=== PATIENT | male | born 1960 | race African-American/Black ===

== ENCOUNTER 2016-06-25 20:34 | Emergency (ER) | payer SELFPAY ==
[~2016-06-25] VITALS: Ht 175.3 cm; Wt 81.8 kg
[2016-06-25 20:38] VITALS: BP 102/64
== END 2016-06-25 21:45 | disposition left against medical advice (07) ==
LOC: EMS 20:36
DX: F31.9 Bipolar disorder, unspecified (principal); F20.9 Schizophrenia, unspecified; F17.210 Nicotine dependence, cigarettes, uncomplicated; Z53.21 Procedure and treatment not carried out due to patient leaving prior to being seen by health care provider

== ENCOUNTER 2016-06-25 23:03 | Emergency (ER) | payer OTHER ==
[~2016-06-25] VITALS: Ht 175.3 cm; Wt 81.8 kg
[2016-06-26] MEDS ORDERED: LORazepam 2 MG TABLET PO ONE (01:00)
[2016-06-26] MEDS ORDERED: QUEtiapine FUMARATE 100 MG TABLET PO ONE (01:30)
[2016-06-26 09:28] VITALS: BP 112/78
== END 2016-06-26 09:39 | disposition home or self-care (01) ==
LOC: EMS 23:06
DX: F25.9 Schizoaffective disorder, unspecified (principal); F31.9 Bipolar disorder, unspecified; F17.210 Nicotine dependence, cigarettes, uncomplicated; Z88.8 Allergy status to other drugs, medicaments and biological substances
CPT/HCPCS: 99284

== ENCOUNTER 2016-06-29 21:09 | Inpatient (IN) | payer MEDICAID, OTHER ==
[~2016-06-29] VITALS: Ht 175.3 cm; Wt 75.7 kg
[2016-06-29 22:06] LABS: BASOPHILS # (AUTO) 0.04 K/uL (0.00-0.20); BASOPHILS % (AUTO) 0.5 % (0.0-2.0); EOSINOPHILS # (AUTO) 0.03 K/uL (0.00-0.70); EOSINOPHILS % (AUTO) 0.42 % (1.0-6.0); HEMATOCRIT 43.7 % (41-53); HEMOGLOBIN 14.1 g/dL (13.5-17.5); LYMPHOCYTES # (AUTO) 1.6 K/uL (1.0-4.8); LYMPHOCYTES % (AUTO) 21.6 % (22.0-44.0); MEAN CORPUSCULAR HEMOGLOBIN 29.3 pg (26.0-34.0); MEAN CORPUSCULAR HGB CONC 32.3 G/dL (31.0-37.0); MEAN CORPUSCULAR VOLUME 91 fL (80-100); MONOCYTES # (AUTO) 0.5 K/uL (0.1-1.0); MONOCYTES % (AUTO) 6.3 % (2.0-9.0); NEUTROPHILS # (AUTO) 5.3 K/uL (1.8-7.7); NEUTROPHILS % (AUTO) 71.2 % (40.0-70.0); PLATELET COUNT (AUTO) 234 K/uL (150-450); RED BLOOD CELL COUNT(AUTO) 4.82 MIL/uL (4.50-5.90); WHITE BLOOD COUNT (AUTO) 7.5 K/uL (4.5-11.0)
[2016-06-29 22:08] LABS: ANION GAP 4 mmol/L (8-16); CALCIUM, TOTAL 8.5 mg/dL (8.8-10.5); CARBON DIOXIDE 32 mmol/L (22-29); CHLORIDE 104 mmol/L (98-107); CREATININE 0.79 mg/dL (0.60-1.30); GLOMERULAR FILTR. RATE CALC > 60 mL/min (>60); POTASSIUM 4.2 mmol/L (3.5-5.1); SODIUM SERUM 140 mmol/L (136-145); UREA NITROGEN, BLOOD 8 mg/dL (7-18)
[2016-06-29 22:14] LABS: ALANINE AMINOTRANSFERASE 22 U/L (12-78); ALBUMIN 3.8 g/dL (3.4-5.0); ASPARTATE AMINOTRANSFERASE 16 U/L (15-37); BILIRUBIN,TOTAL 0.3 mg/dL (0.1-1.0); TOTAL PROTEIN, SERUM 7.1 g/dL (6.4-8.2)
[2016-06-29] MEDS ORDERED: DiphenhydrAMINE HCL 50 MG/ML VIAL IM ONE (22:30)
[2016-06-29] MEDS ORDERED: QUEtiapine FUMARATE 100 MG TABLET PO ONE (22:30)
[2016-06-29] MEDS ORDERED: LORazepam 2 MG/ML VIAL IM ONE (22:30)
[2016-06-30 01:03] VITALS: BP 118/67
[2016-06-30 08:01] VITALS: BP 117/83
[2016-06-30] MEDS: LORazepam 2 MG TABLET PO PRN (12:10)
[2016-06-30] MEDS: QUEtiapine FUMARATE 100 MG TABLET PO PRN (12:10)
[2016-06-30 16:28] VITALS: BP 116/78
[2016-06-30] MEDS ORDERED: BACITRACIN 28.4 GM OINTMENT TP PRN (18:00)
[2016-06-30] MEDS ORDERED: ALBUTEROL SULFATE HFA 90 MCG/PUFF 8 GM INHALER IH PRN (18:00)
[2016-06-30] MEDS ORDERED: PETROLATUM,WHITE 71 GM JELLY TP PRN (18:00)
[2016-06-30] MEDS ORDERED: BENZOCAINE/MENTHOL LOZENGE [8 LOZENGES/PACKET] MM PRN (18:00)
[2016-06-30] MEDS ORDERED: MAG HYDROX/AL HYDROX/SIMETH ES 30 ML SUSPENSION UDCUP PO PRN ×2 (18:00)
[2016-06-30] MEDS ORDERED: ACETAMINOPHEN 325 MG TABLET PO PRN ×2 (18:00)
[2016-06-30] MEDS ORDERED: MAGNESIUM HYDROXIDE SUSPENSION 30 ML UDCUP PO PRN ×2 (18:00)
[2016-06-30] MEDS ORDERED: CloNIDine HCL 0.1 MG TABLET PO PRN (18:00)
[2016-06-30] MEDS ORDERED: IBUPROFEN 600 MG TABLET PO PRN (18:00)
[2016-06-30] MEDS ORDERED: ONDANSETRON HCL 4 MG TABLET PO PRN (18:00)
[2016-06-30] MEDS ORDERED: LOPERAMIDE HCL 2 MG CAPSULE PO PRN (18:00)
[2016-06-30] MEDS: QUEtiapine FUMARATE 25 MG TABLET PO SCH (20:08)
[2016-07-01] MEDS: LORazepam 2 MG TABLET PO PRN (07:51)
[2016-07-01] MEDS: BENZTROPINE MESYLATE 0.5 MG TABLET PO SCH ×2 (08:05→16:11)
[2016-07-01] MEDS: QUEtiapine FUMARATE 25 MG TABLET PO SCH ×2 (08:05→16:12)
[2016-07-01 08:30] VITALS: BP 115/79
[2016-07-01 16:10] VITALS: BP 118/75
[2016-07-02 07:07] LABS: CHOL/HDL RATIO 2.5 (4.2-7.3)
[2016-07-02 08:09] VITALS: BP 106/71
[2016-07-02] MEDS: BENZTROPINE MESYLATE 0.5 MG TABLET PO SCH ×2 (08:43→17:00)
[2016-07-02] MEDS: QUEtiapine FUMARATE 25 MG TABLET PO SCH ×2 (08:43→17:00)
[2016-07-02] MEDS: LORazepam 2 MG TABLET PO PRN (08:44)
[2016-07-03] MEDS: BENZTROPINE MESYLATE 0.5 MG TABLET PO SCH ×2 (08:02→16:24)
[2016-07-03] MEDS: QUEtiapine FUMARATE 25 MG TABLET PO SCH ×2 (08:02→16:24)
[2016-07-03 08:08] VITALS: BP 104/69
[2016-07-03 16:53] VITALS: BP 137/75
[2016-07-04 08:21] VITALS: BP 126/74
[2016-07-04] MEDS: QUEtiapine FUMARATE 100 MG TABLET PO SCH ×2 (09:15→16:24)
[2016-07-04] MEDS: BENZTROPINE MESYLATE 0.5 MG TABLET PO SCH ×2 (09:15→16:23)
[2016-07-04 16:47] VITALS: BP 131/79
[2016-07-05 08:05] VITALS: BP 98/60
[2016-07-05] MEDS: BENZTROPINE MESYLATE 0.5 MG TABLET PO SCH ×2 (08:17→16:28)
[2016-07-05] MEDS: CHOLECALCIFEROL (VIT D3) 1,000 UNITS TABLET PO SCH (08:17)
[2016-07-05] MEDS: QUEtiapine FUMARATE 300 MG TABLET PO SCH ×2 (08:17→20:29)
[2016-07-05 17:40] VITALS: BP 116/74
[2016-07-06 08:02] VITALS: BP 100/60
[2016-07-06] MEDS: CHOLECALCIFEROL (VIT D3) 1,000 UNITS TABLET PO SCH (09:01)
[2016-07-06] MEDS: QUEtiapine FUMARATE 300 MG TABLET PO SCH (09:01)
[2016-07-06] MEDS: BENZTROPINE MESYLATE 0.5 MG TABLET PO SCH ×2 (09:02→16:03)
[2016-07-06] MEDS ORDERED: SODIUM CHLORIDE 0.65% 44 ML NASAL SPRAY NASAL PRN (16:45)
[2016-07-06] MEDS: QUEtiapine FUMARATE 200 MG TABLET PO SCH (20:13)
[2016-07-07] MEDS: QUEtiapine FUMARATE 200 MG TABLET PO SCH ×2 (07:53→20:16)
[2016-07-07] MEDS: CHOLECALCIFEROL (VIT D3) 1,000 UNITS TABLET PO SCH (07:53)
[2016-07-07] MEDS: BENZTROPINE MESYLATE 2 MG TABLET PO SCH ×2 (07:54→16:04)
[2016-07-07 09:08] VITALS: BP 124/84
[2016-07-07] MEDS: LORazepam 2 MG TABLET PO PRN ×2 (11:59→16:08)
[2016-07-07] MEDS: QUEtiapine FUMARATE 100 MG TABLET PO PRN ×2 (11:59→16:08)
[2016-07-07 16:30] VITALS: BP 118/72
[2016-07-08] MEDS: BENZTROPINE MESYLATE 2 MG TABLET PO SCH ×2 (08:02→16:51)
[2016-07-08] MEDS: CHOLECALCIFEROL (VIT D3) 1,000 UNITS TABLET PO SCH (08:02)
[2016-07-08] MEDS: QUEtiapine FUMARATE 200 MG TABLET PO SCH ×2 (08:02→20:14)
[2016-07-08] MEDS: LORazepam 2 MG TABLET PO PRN ×2 (08:03→16:51)
[2016-07-08 08:05] VITALS: BP 100/60
[2016-07-08 18:13] VITALS: BP 137/87
[2016-07-09] MEDS: CHOLECALCIFEROL (VIT D3) 1,000 UNITS TABLET PO SCH (08:09)
[2016-07-09] MEDS: QUEtiapine FUMARATE 200 MG TABLET PO SCH ×2 (08:09→20:16)
[2016-07-09] MEDS: DIVALPROEX SODIUM 250 MG DR TABLET PO SCH ×2 (08:09→16:03)
[2016-07-09] MEDS: BENZTROPINE MESYLATE 2 MG TABLET PO SCH ×2 (08:09→16:03)
[2016-07-09 08:10] VITALS: BP 106/64
[2016-07-09] MEDS: LORazepam 2 MG TABLET PO PRN (08:11)
[2016-07-09 19:07] VITALS: BP 104/65
[2016-07-10] MEDS: ZOLPIDEM TARTRATE 10 MG TABLET PO PRN (02:18)
[2016-07-10] MEDS: LORazepam 2 MG TABLET PO PRN (02:18)
[2016-07-10] MEDS: QUEtiapine FUMARATE 100 MG TABLET PO PRN (03:14)
[2016-07-10 05:29] VITALS: BP 112/82
[2016-07-10] MEDS: CHOLECALCIFEROL (VIT D3) 1,000 UNITS TABLET PO SCH (08:22)
[2016-07-10] MEDS: QUEtiapine FUMARATE 200 MG TABLET PO SCH ×2 (08:22→20:43)
[2016-07-10] MEDS: BENZTROPINE MESYLATE 2 MG TABLET PO SCH ×2 (08:22→17:45)
[2016-07-10] MEDS: DIVALPROEX SODIUM 250 MG DR TABLET PO SCH ×2 (08:25→17:45)
[2016-07-10 08:56] VITALS: BP 115/83
[2016-07-10 16:25] VITALS: BP 131/78
[2016-07-11] MEDS: LORazepam 2 MG TABLET PO PRN ×2 (02:09→08:20)
[2016-07-11] MEDS: ZOLPIDEM TARTRATE 10 MG TABLET PO PRN (02:10)
[2016-07-11 08:00] VITALS: BP 122/88
[2016-07-11] MEDS: BENZTROPINE MESYLATE 2 MG TABLET PO SCH ×2 (08:20→17:01)
[2016-07-11] MEDS: DIVALPROEX SODIUM 250 MG DR TABLET PO SCH ×2 (08:20→17:01)
[2016-07-11] MEDS: CHOLECALCIFEROL (VIT D3) 1,000 UNITS TABLET PO SCH (08:20)
[2016-07-11] MEDS: QUEtiapine FUMARATE 100 MG TABLET PO PRN (08:20)
[2016-07-11] MEDS: QUEtiapine FUMARATE 200 MG TABLET PO SCH ×2 (08:21→21:16)
[2016-07-11 16:00] VITALS: BP 119/81
[2016-07-12] MEDS: QUEtiapine FUMARATE 100 MG TABLET PO PRN (03:01)
[2016-07-12 08:06] VITALS: BP 107/59
[2016-07-12] MEDS: BENZTROPINE MESYLATE 2 MG TABLET PO SCH ×2 (10:18→16:31)
[2016-07-12] MEDS: LORazepam 2 MG TABLET PO PRN (10:18)
[2016-07-12] MEDS: DIVALPROEX SODIUM 500 MG DR TABLET PO SCH ×2 (10:18→16:31)
[2016-07-12] MEDS: CHOLECALCIFEROL (VIT D3) 1,000 UNITS TABLET PO SCH (10:18)
[2016-07-12] MEDS: QUEtiapine FUMARATE 200 MG TABLET PO SCH ×2 (10:18→21:18)
[2016-07-12 16:00] VITALS: BP 116/81
[2016-07-13] MEDS: DIVALPROEX SODIUM 500 MG DR TABLET PO SCH ×2 (08:02→17:19)
[2016-07-13] MEDS: BENZTROPINE MESYLATE 2 MG TABLET PO SCH ×2 (08:02→17:19)
[2016-07-13] MEDS: CHOLECALCIFEROL (VIT D3) 1,000 UNITS TABLET PO SCH (08:02)
[2016-07-13] MEDS: LORazepam 2 MG TABLET PO PRN ×2 (08:02→12:31)
[2016-07-13] MEDS: QUEtiapine FUMARATE 200 MG TABLET PO SCH ×2 (08:02→20:06)
[2016-07-13 08:05] VITALS: BP 106/70
[2016-07-13] MEDS: QUEtiapine FUMARATE 100 MG TABLET PO PRN (12:31)
[2016-07-13 16:19] VITALS: BP 131/78
[2016-07-14] MEDS: BENZTROPINE MESYLATE 2 MG TABLET PO SCH ×2 (07:50→16:47)
[2016-07-14] MEDS: LORazepam 2 MG TABLET PO PRN (07:50)
[2016-07-14] MEDS: QUEtiapine FUMARATE 200 MG TABLET PO SCH ×2 (07:51→20:19)
[2016-07-14] MEDS: DIVALPROEX SODIUM 500 MG ER TABLET PO SCH ×2 (07:51→16:47)
[2016-07-14] MEDS: CHOLECALCIFEROL (VIT D3) 1,000 UNITS TABLET PO SCH (07:51)
[2016-07-14 08:00] VITALS: BP 104/71
[2016-07-14 16:13] VITALS: BP 125/71
[2016-07-15 08:16] VITALS: BP 107/69
[2016-07-15] MEDS: BENZTROPINE MESYLATE 2 MG TABLET PO SCH ×2 (08:33→16:32)
[2016-07-15] MEDS: DIVALPROEX SODIUM 500 MG ER TABLET PO SCH ×2 (08:34→16:32)
[2016-07-15] MEDS: CHOLECALCIFEROL (VIT D3) 1,000 UNITS TABLET PO SCH (08:34)
[2016-07-15] MEDS: QUEtiapine FUMARATE 200 MG TABLET PO SCH ×2 (08:34→20:25)
[2016-07-16 08:34] VITALS: BP 107/73
[2016-07-16] MEDS: QUEtiapine FUMARATE 200 MG TABLET PO SCH ×2 (09:04→20:46)
[2016-07-16] MEDS: BENZTROPINE MESYLATE 2 MG TABLET PO SCH ×2 (09:04→16:30)
[2016-07-16] MEDS: CHOLECALCIFEROL (VIT D3) 1,000 UNITS TABLET PO SCH (09:04)
[2016-07-16] MEDS: DIVALPROEX SODIUM 500 MG ER TABLET PO SCH ×2 (09:04→16:30)
[2016-07-17 08:00] VITALS: BP 103/67
[2016-07-17] MEDS: DIVALPROEX SODIUM 500 MG ER TABLET PO SCH ×2 (08:09→16:43)
[2016-07-17] MEDS: QUEtiapine FUMARATE 200 MG TABLET PO SCH ×2 (08:09→20:47)
[2016-07-17] MEDS: CHOLECALCIFEROL (VIT D3) 1,000 UNITS TABLET PO SCH (08:09)
[2016-07-17] MEDS: BENZTROPINE MESYLATE 2 MG TABLET PO SCH ×2 (08:10→16:43)
[2016-07-17 17:00] VITALS: BP 112/74
[2016-07-18 02:58] VITALS: BP 103/67
[2016-07-18] MEDS: BENZTROPINE MESYLATE 2 MG TABLET PO SCH ×2 (09:35→16:20)
[2016-07-18] MEDS: DIVALPROEX SODIUM 500 MG ER TABLET PO SCH ×2 (09:35→16:20)
[2016-07-18] MEDS: QUEtiapine FUMARATE 200 MG TABLET PO SCH ×2 (09:35→20:48)
[2016-07-18] MEDS: CHOLECALCIFEROL (VIT D3) 1,000 UNITS TABLET PO SCH (09:35)
[2016-07-18 09:51] VITALS: BP 98/59
[2016-07-18 16:30] VITALS: BP 110/67
[2016-07-19] MEDS: CHOLECALCIFEROL (VIT D3) 1,000 UNITS TABLET PO SCH (09:37)
[2016-07-19] MEDS: QUEtiapine FUMARATE 200 MG TABLET PO SCH ×2 (09:37→20:29)
[2016-07-19] MEDS: DIVALPROEX SODIUM 500 MG ER TABLET PO SCH ×2 (09:37→16:49)
[2016-07-19] MEDS: BENZTROPINE MESYLATE 2 MG TABLET PO SCH ×2 (09:37→16:49)
[2016-07-19 10:22] VITALS: BP 113/68
[2016-07-19 17:43] VITALS: BP 106/63
[2016-07-20] MEDS: DIVALPROEX SODIUM 500 MG ER TABLET PO SCH ×2 (08:40→16:27)
[2016-07-20] MEDS: QUEtiapine FUMARATE 200 MG TABLET PO SCH ×2 (08:40→21:26)
[2016-07-20] MEDS: CHOLECALCIFEROL (VIT D3) 1,000 UNITS TABLET PO SCH (08:40)
[2016-07-20] MEDS: BENZTROPINE MESYLATE 2 MG TABLET PO SCH ×2 (08:41→16:27)
[2016-07-20 09:47] VITALS: BP 95/72
[2016-07-20] MEDS ORDERED: DIVA500T52 PO ×2 (13:14→13:18)
[2016-07-20] MEDS ORDERED: BENZ2TAB10 PO (13:14)
[2016-07-20] MEDS ORDERED: QUET200T PO ×2 (13:15→13:17)
[2016-07-20] MEDS: ZOLPIDEM TARTRATE 10 MG TABLET PO PRN (22:59)
[2016-07-20 23:03] VITALS: BP 96/78
[2016-07-21 09:06] VITALS: BP 106/67
[2016-07-21] MEDS: DIVALPROEX SODIUM 500 MG ER TABLET PO SCH (09:32)
[2016-07-21] MEDS: QUEtiapine FUMARATE 200 MG TABLET PO SCH (09:32)
[2016-07-21] MEDS: CHOLECALCIFEROL (VIT D3) 1,000 UNITS TABLET PO SCH (09:32)
[2016-07-21] MEDS: BENZTROPINE MESYLATE 2 MG TABLET PO SCH (09:32)
[2016-07-21] MEDS ORDERED: VITAD1000 PO (13:07)
== END 2016-07-21 14:00 | disposition home or self-care (01) | DRG 750 ==
LOC: EMS 21:10 → 3EC 06-30 00:22 → 3EI 07-17 15:50
PROVIDERS: ADMIT Psychiatry & Neurology Psychiatry; ATTEND Psychiatry & Neurology Psychiatry
DX: F20.0 Paranoid schizophrenia (principal); E58 Dietary calcium deficiency; J44.9 Chronic obstructive pulmonary disease, unspecified; Z72.0 Tobacco use; F10.10 Alcohol abuse, uncomplicated; Y90.0 Blood alcohol level of less than 20 mg/100 ml; G47.00 Insomnia, unspecified; K21.9 Gastro-esophageal reflux disease without esophagitis; K59.00 Constipation, unspecified; Z59.0 Homelessness; Z88.8 Allergy status to other drugs, medicaments and biological substances; Z91.14 Patient's other noncompliance with medication regimen
CPT/HCPCS: 82306; 87081; 96372; 99285; G0480; J1200; J2060